=== PATIENT | male | born 1930 | race African-American/Black ===

== ENCOUNTER 2018-05-07 17:52 | Inpatient (IN) ==
--- NOTE | 2018-05-07 18:23 | PROVIDER DOCUMENTATION ---
HPI-General Adult - General Chief Complaint: Urinary Retention Stated Complaint: urinary retention Time Seen by Provider: 05/07/18 19:00 Source: patient Allergies/Adverse Reactions: Patient Allergies Allergy/AdvReac Type Severity Reaction Status Date / Time No Known Allergies Allergy Verified 05/07/18 18:04 Home Medications: Home Medication List Medication Instructions Recorded Confirmed Last Taken Type Carvedilol [Coreg] 25 mg PO DAILY 06/24/13 02/12/18 01/20/18 History Finasteride [Proscar] 1 tab PO DAILY 07/25/15 02/12/18 01/20/18 History Famotidine [Pepcid] 40 mg PO DAILY 09/04/16 02/12/18 01/20/18 History Gabapentin [Neurontin] 1 cap PO BID 09/04/16 02/12/18 01/20/18 History Hydralazine [Apresoline] 75 mg PO TID 09/04/16 02/12/18 01/20/18 History Bicalutamide [Casodex] 50 mg PO QAM 01/19/18 02/12/18 01/20/18 History Bupropion S.r. [Wellbutrin Sr] 150 mg PO BID 01/19/18 02/12/18 01/20/18 History Clonidine [Catapres] 0.1 mg PO Q6H PRN 01/19/18 02/12/18 01/20/18 History Lisinopril 10 mg PO DAILY #14 tab 01/19/18 02/12/18 01/20/18 Rx Losartan/Hydrochlorothiazide 1 each PO QAM 01/19/18 02/12/18 01/20/18 History [Losartan-Hctz 100-12.5 mg Tab] Metformin HCl [Glucophage] 1,000 mg PO QHS 01/19/18 02/12/18 01/20/18 History Sitagliptin Phosphate [Januvia] 100 mg PO QAM 01/19/18 02/12/18 01/20/18 History Tamsulosin [Flomax] 0.4 mg PO QHS 01/19/18 02/12/18 01/20/18 History Hydroxyzine [Atarax] 25 mg PO Q8H PRN PRN tablet 01/27/18 02/12/18 Unknown Rx - History of Present Illness -Gen Adult Nature of Presenting Problems: Pt coming from the [place] for urinary retention, hasn't been able to urinate today, now with lower abdominal pain, pt has known prostate enlargement, pt denies f/c , rich, cp, sob, cough, n/v/d. Pt is lying in bed in no acute distress. Location of Pain/Injury: reports: pelvis (urinary retention) Pain Radiation: reports: suprapubic Quality of Pain: reports: pressure Severity: reports: moderate Onset/Duration: reports: 24 hours ago Timing: reports: still present Context/Activities at Onset: reports: none Modifying Factors: improves with: nothing Associated Symptoms: reports: denies symptoms Similar Symptoms Previously?: No Recently seen or treated by another doctor?: No Review of Systems - Adult - REVIEW OF SYSTEMS - ADULT Constitutional: reports: no symptoms reported Eyes: reports: no symptoms reported Ears, Nose, Mouth & Throat: reports: no symptoms reported Cardiovascular: reports: no symptoms reported Respiratory: reports: no symptoms reported Gastrointestinal: reports: no symptoms reported Genitourinary: reports: see HPI Musculoskeletal: reports: no symptoms reported Integumentary: reports: no symptoms reported Neurological: reports: no symptoms reported Psychiatric: reports: no symptoms reported Endocrine: reports: no symptoms reported Hematologic/Lymphatic: reports: no symptoms reported Allergic/Immunologic: reports: no symptoms reported All Other Systems: Reviewed and Negative Past History - Adult - PAST MEDICAL HISTORY-ADULT Review of Records: reports: Nursing Assessment Review Major Childhood Illnesses: reports: denies history Cardiovascular: reports: HTN, hyperlipidemia Respiratory: reports: denies history Gastrointestinal: reports: GERD, liver disease, other (constipation) Obstetrical/Gynecological: reports: denies history Genitourinary: reports: prostate cancer (Patient refuses treatment), other (BPH) Musculoskeletal: reports: denies history Neurological: reports: dementia, headaches/migraines Psychiatric: reports: denies history Endocrine/Immune: reports: denies history Other Conditions: reports: denies history, other (anenmnia) - PRIOR SURGERIES/PROCEDURES Surgical/Procedure History: reports: hernia repair - PRIOR HOSPITALIZATIONS Prior Hospitalizations: reports: none - IMMUNIZATION STATUS Childhood Immunizations: See Nurse Assessment Flu Vaccine: See Nurse Assessment - FAMILY HISTORY Family History: reviewed, not pertinent Physical Exam-General - PHYSICAL EXAM-ADULT Initial Vital Signs Reviewed: Yes - CONSTITUTIONAL General Appearance: appears well - EYES Eyes: PERRL/EOMI - HEAD, EARS, NOSE, MOUTH & THROAT HENMT: normocephalic/atraumatic - NECK Neck: non-tender - RESPIRATORY Respiratory: chest non-tender - CARDIOVASCULAR Cardiovascular: normal peripheral pulses - GASTROINTESTINAL (ABDOMEN) Abdominal Exam: normal bowel sounds, non tender, soft - LYMPHATIC Lymphatic: no adenopathy - MUSCULOSKELETAL Back Exam: normal inspection Extremity: normal range of motion - SKIN Integumentary: normal color - NEUROLOGIC Neurologic: attendant honor bar II-XII nml as tested - PSYCHIATRIC Psych/Mental Status: normal mood/affect Progress - PLAN OF CARE/RESULTS Progress/Plan/Lab Results: Vital Signs - 8 hr 05/07/18 17:53 Temperature 98.1 F Pulse Rate 67 Respiratory Rate 18 Blood Pressure 112/60 O2 Sat by Pulse Oximetry 97 Orders Category Date Time Status Carmichael Cath Insertion ORDERED Care 05/07/18 18:11 Active BMP [BASIC METABOLIC PANEL] [CHEM] Stat Lab 05/07/18 18:15 Uncollected CBC WITH ELECTRONIC DIFF [HEME] Stat Lab 05/07/18 18:14 Uncollected UA [URINALYSIS] [URINALYSIS] Stat Lab 05/07/18 18:15 Uncollected - REASSESSMENT Reassessment #1 Time Reassessed: 19:29 Status: unchanged (ER-ER transfer for Dr Pineda to attend to him) - CONSULTS/PCP/HOSPITALIST Notification #1 *Consult/PCP/Hospitalist*: Dr pineda requested that he be transferred to ER at [facility] where he has his t Time Discussed: 19:00 (all attempts here have failed) Consult Disposition: Will see in ED #2 Consult: Pt discussed with Dr Pineda who asked that hospitalist admit patient. Time Discussed: 23:41 Reason/Comments: Pt discussed with Dr Parker who agreed to admit and asked for labs. Departure - Departure Date of Disposition Decision: 05/07/18 Time of Disposition Decision: 19:28 DIAGNOSIS: Acute urinary retention Disposition: [facility] 02 Certified Medical Emergency: Emergent Condition: Stable Referrals and Follow-Ups: UNKNOWN, [Primary Care Provider] - - Critical Care Note This patient required my direct & personal management of CC.: No Attestation - Physician/ MARYSOL Attestation The physician spent face to face time with patient:: Yes Advanced Practice Provider documentation review:: Supervising physician onsite and consulted in the evaluation and care of this patient. The physician did have a face to face encounter with the patient.
[2018-05-07] MEDS ORDERED: XYLOCAINE 2% VISCOUS MT ONE (22:05)
[2018-05-08 00:48] LABS: BASO# 0.01 X1000 (0.0-0.2); BASO% 0.1 % (0.0-0.8); HEMATOCRIT 41.6 % (42.0-52.0); HEMOGLOBIN 12.8 g/dL (14.0-18.0); IMM GRAN# 0.03 X1000 (0.0-0.04); IMM GRAN% 0.3 % (0.0-0.5); LYMPH# 0.83 X1000 (1.2-3.4); LYMPH% 7.4 % (20.5-51.1); MCH 28.9 PG (27-31); MCHC 30.8 g/dL (33-37); MCV 93.9 FL (81-99); MONO# 0.94 X1000 (0.11-0.59); MONO% 8.4 % (1.7-9.3); NEUT# 9.44 X1000 (1.4-6.5); NEUT% 83.8 % (42.2-75.2); PLT 156 X1000 (130-400); RBC 4.43 XMIL (4.7-6.1); RDW 15.3 % (11.5-14.5); WBC 11.25 X1000 (4.8-10.8)
[2018-05-08 01:14] LABS: ALB/GLOB RATIO 0.9; ALBUMIN 3.7 g/dL (3.5-5.0); CREATININE 1.9 mg/dL (0.7-1.2); POTASSIUM 4.9 mmol/L (3.5-5.1); TOTAL BILIRUBIN 0.67 mg/dL (0.20-1.00); TOTAL PROTEIN 7.7 g/dL (6.3-8.3)
[2018-05-08] MEDS ORDERED: ZOSYN 3.375 GM in NS 50 ML IV ONE (02:36)
[2018-05-08] MEDS ORDERED: NS 500 ML IV ONE (02:37)
[2018-05-08] MEDS ORDERED: NUBAIN IV PRN (03:09)
[2018-05-08] MEDS ORDERED: CATAPRES PO PRN (03:09)
[2018-05-08] MEDS ORDERED: ZOFRAN IV PRN (03:09)
[2018-05-08] MEDS ORDERED: ATARAX PO PRN (03:09)
[2018-05-08] MEDS: NS 1,000 ML IV SCH ×2 (03:25→11:16)
[2018-05-08] MEDS: HEPARIN SUBQ SCH ×2 (03:34→15:56)
--- NOTE | 2018-05-08 05:41 | HISTORY AND PHYSICAL ---
PRIMARY CARE PHYSICIAN: Unknown. Patient of [facility] facility. HISTORY OF PRESENT ILLNESS: Mr. Eddie Moreira is an 88-year-old man who is an extremely poor historian. He tells me that he [facility] to his doctor's office because he says he has been having some abdominal pain and some nausea. From there he was sent to [facility], and when they evaluated him they felt he had acute urinary retention and called Dr. Pineda who wanted the patient transferred to [facility]. Somehow the patient ended up in [facility] ER and when they heard the report from [place] that he may have urinary retention they tried to put in a catheter without any success, despite consulting Dr. Pineda who had given them some advice on how to do this. They then called Dr. Pineda with the assumption of thinking that he would come down and see the patient, but he said they were mistaken and wanted the patient admitted to the hospitalist service. When I saw the patient, I asked him about his bladder function. He said he does not have any issues with his bladder, but his problem is that he has lower abdominal pain and he thinks it may be related to a preexisting inguinal hernia. He denied any fever or chills, but said he is just queasy and sick and has been spitting up a lot of saliva. He denies any abdominal distention otherwise. As I stated earlier, he is a very poor historian, and it was very hard to get information out of him. He says the pain started yesterday and has been constant and he believes that is the reason why he was sent to see the doctor in the office. He denies any bleeding per rectum. He denies any cardiorespiratory complaints. REVIEW OF SYSTEMS: Very limited due to patient's difficulty understanding questions and giving any meaningful answers. ALLERGIES: No known allergies. HOME MEDICATIONS: 1. Clonidine 0.1 mg q.6 for systolic blood pressure greater than 170. 2. Metformin 1000 mg daily. 3. Flomax 0.4 mg at bedtime. 4. Casodex 60 mg q.a.m. 5. Wellbutrin 150 mg b.i.d. 6. Coreg 25 mg daily. 7. Pepcid 40 mg daily. 8. Proscar 1 tablet daily. 9. Gabapentin 100 mg b.i.d. 10.Apresoline 75 mg t.i.d. 11.Hyzaar 100/12.5 mg daily. 12.Januvia 100 mg q.a.m. 13.Atarax 75 mg q.8. 14.Lisinopril 10 mg daily. PAST MEDICAL HISTORY: History of prostate cancer, hypertension, type 2 diabetes , BPH, CKD. 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 FAMILY HISTORY: Unable to get. SOCIAL HISTORY: intermediate resident. Not actively smoking or drinking. PAST SURGICAL HISTORY: Has had orchiectomy and cholecystectomy per old records. LAB WORK: White count 11,000, hemoglobin 12, hematocrit 42, platelets 156,000, neutrophils 83%. BUN 29, creatinine 1.9 (baseline is usually 2), glucose 179. Urinalysis pending. CT scan official report is pending, but on what I can see, i see the patient has a lot of stool in the bowel, a large amount of gastric contents and left inguinal hernia. It is difficult to say if there is any obstruction. EXAMINATION: GENERAL: Elderly overweight man who is alert and oriented to person and place, not to time. VITAL SIGNS: Blood pressure 112/60, heart rate 67, respirations 18, temperature 98.1, 97% on room air. HEENT: Head: Normocephalic and atraumatic. Eyes: PERRL. EOMI. He is anicteric and not pale. ENT: Grossly normal. NECK: Supple. No JVD, carotid bruits or thyromegaly. CHEST: Clear when auscultated with good entry in both nicholson. CARDIOVASCULAR: First and second sounds heard. No gallops, murmurs or rubs. Rhythm is regular. ABDOMEN: Protuberant, soft. There is no tenderness except in the left lower quadrant area and left inguinal area. There is an obvious inguinal hernia which is not reducible. It does not descend into the scrotal sac. The testes are small in size, separate from the anoderm and I can get above the testes. The patient has a diminutive penis and it is uncircumcised. No rebound or guarding, but he is extremely tender. Not warm to touch. Bowel sounds are hyperactive. RECTAL: Examination deferred at this time. EXTREMITIES: The patient has no edema. Pulses distally are slightly diminished compared to the distal pulses of the upper extremities. No chronic peripheral cyanosis. NEUROLOGIC: No focal deficits noted. No asterixis. SKIN: Dry, scaly. No overt breakdown. MUSCULOSKELETAL: Grossly normal. ASSESSMENT: 1. Left lower quadrant pain possibly related to left inguinal hernia incarceration. 2. Chronic kidney disease. 3. Type 2 diabetes. 4. Hypertension. 5. Benign prostatic hypertrophy/prior carcinoma of prostate. 6. Anemia of chronic inflammation. PLAN: The patient symptoms are evaluated and do not seem to be consistent with acute bladder retention in his patient, however, will still get the patient to see Dr. Pineda. I think his primary problem is related to inguinal hernia and official CT scan report is pending. The patient is having a lot of diarrhea, has had several non bloody stools which makes it less likely that this patient has an obstructing hernia, but it may be an incarcerating hernia. No fever or chills to suggest that there is infection. I will hold off giving antibiotics for now. Hydration will be administered. Pain medications and antiemetics will be administered. Will recommend General Surgery be consulted in conjunction with a urologist. Will hold most of his antihypertensives as his blood pressure is on the low side, especially MATILDE inhibitor and ARB, which the patient was taking both for reason unknown. Depending on the official CT scan report, the patient will need nasogastric tube if it is shown that he is truly obstructed, although I sincerely doubt this. Repeat labs in the a.m. If the patient's white count escalates will consider initiating antibiotics. Urinalysis is also pending once the patient is able to produce urine after IV fluid resuscitation, and will need to be sent off. cc: Jaquelin Parker MD MTDD
[2018-05-08] MEDS: HUMALOG SUBQ SCH ×4 (06:24→21:39)
--- NOTE | 2018-05-08 07:38 | Diag Imaging Result Doc PS360 ---
EXAM: CT ABDOMEN/PELVIS W/O CONTRAST 05/08/2018 HISTORY: SBO TECHNIQUE: This exam was performed using automated exposure control, adjustment of mA or kV according to patient size, and/or use of iterative reconstruction technique. COMMENT: The current examination is compared with 02/12/2018. There is linear opacity in the left lower lobe probably representing atelectasis, otherwise there is no evidence of acute disease in the visualized portion of the chest. There is bilateral gynecomastia. There is a small hiatal hernia. There has been cholecystectomy. There is some degree of adrenal hyperplasia particularly on the left which has not changed since the previous examination. There is no evidence of hydronephrosis masses or stones in the kidneys as much as can be determined on the noncontrast study. There is stool in the colon. The appendix is not distended. The small bowel is similar in appearance to the previous examination. There is no evidence of free air or obstruction. There is a fairly large left inguinal hernia which contains a portion of the colon. This also contains some free fluid and there is thickening and apparent inflammation in the distal descending colon and the intra hernia portion of the colon. The possibility of colitis or even neoplasm cannot be excluded. There is gas and stool in the distal sigmoid and rectum. The inflammatory findings in the distal colon and in the colon within the hernia sac were not present at the time the previous study. The urinary bladder is not distended. There is no evidence of abdominal aortic aneurysm. There are number of bone islands in the pelvis as well as a sclerotic lesion on the iliac side of both sacroiliac joints more so on the right left. This has not changed significantly since the previous study. There are marked spondylotic changes present in the lumbar spine with apparent spinal stenosis at L4-5 and L3-4. There is dense sclerosis in the right pedicle of L2 with a central posterior sclerotic lesion in the body. This was also present at the time the previous study. There is bilateral iliac adenopathy particularly on the right side where there is a node or mass of nodes measuring over 3.3 cm in diameter. This is actually decreased since the previous study at which time it measured over 3.8 cm in AP dimension. Presumably these findings are related to the patient's known prostate carcinoma. IMPRESSION: 1. Left inguinal hernia containing portions of the sigmoid colon. Thickening of the mucosa and paracolonic inflammatory changes. The possibility of colitis is suggested. 2. Sclerotic osseous metastatic disease, stable since 02/12/2018. 3. Pelvic adenopathy. This is improved on the right since the previous examination. Electronically signed by Donovan Savage 05/08/2018 7:35 AM
[2018-05-08] MEDS: CASODEX PO SCH (10:41)
[2018-05-08] MEDS: PEPCID PO SCH (10:42)
[2018-05-08] MEDS: PROSCAR PO SCH (10:42)
--- NOTE | 2018-05-08 17:30 | GENERAL SURGERY CONSULTATION ---
DATE: 05/08/2018 CHIEF COMPLAINT: Incarcerated left inguinal hernia. HISTORY OF PRESENT ILLNESS: Mr. Moreira is admitted from [facility] with some abdominal discomfort and some possible urinary retention. He is discovered to have a large left inguinal hernia that is not reducible. OTHER MEDICAL PROBLEMS: His other medical problems include hypertension, lower urinary tract obstruction. He has type 2 diabetes, history of prostate cancer, some chronic kidney disease, BPH. FAMILY HISTORY: Unknown. SOCIAL HISTORY: He is a detention resident. He says he has a daughter and a sister, but that is his only family. PREVIOUS SURGERY: Includes a cholecystectomy and an orchidectomy. REVIEW OF SYSTEMS: Really difficult to obtain besides what is noted above. PHYSICAL EXAMINATION: Vital Signs: On physical exam, he is afebrile, heart rate 84, respiratory rate 16, blood pressure 178/94. Neck: No cervical adenopathy. Lungs: Bilateral breath sounds are present. Heart: Regular rate and rhythm. Abdomen: Soft. He has a large left inguinal hernia into his scrotum that is nonreducible. Extremities: No peripheral edema. Neurologic: He is awake and alert. DIAGNOSTIC DATA: White count is 11,200, hemoglobin 12.8, hematocrit 41. BUN 24, creatinine 1.9. ASSESSMENT: Incarcerated left inguinal hernia. PLAN: The plan is repair. I have discussed it with him. He understands and agrees to proceed. cc: MD Jeff Barbosa MD
--- NOTE | 2018-05-08 18:06 | PROGRESS NOTE ---
DATE: 05/08/2018 SUBJECTIVE: Mr. Moreira is very vague and poor historian admitted with urinary hesitancy, pain in the lower abdomen. No high-grade fever or chills. Known case of diabetes and hypertension. Prostate cancer. The patient did have diarrhea. Surgical consult noted. OBJECTIVE: Vital Signs: The patient's vital signs are reviewed. Neck: Supple. No JVD. Lungs: Bibasilar crepitation. Heart: S1 and S2 heard. Abdomen: Soft, globular. Tenderness left groin and lower quadrant. Extremities: No cyanosis, clubbing. No acute DVT. CONVERTIBLE TOP INSTALLER: Alert, awake, able to move all 4 limbs. Uncooperative for detailed neurologic examination. CONSIDERATION: Pain in the left lower quadrant. History suggestive of urinary retention. Patient does have CT scan of the abdomen and pelvis done, which did reveal left inguinal hernia containing portion of the sigmoid colon. Thickening of mucosa and paracolonic inflammatory changes. Possibility of colitis is suggested. Osseous metastatic disease from possible prostate cancer. Pelvic adenopathy. LABORATORY DATA: Done today, hemoglobin 12.8, hematocrit 41.6, platelet count 156,000. WBC count 11.25. ASSESSMENT AND PLAN: The patient's other problems include hypertension, diabetes chronic kidney disease. The patient does have dementia. PLAN: Surgical and Urology helping manage this patient. We will continue rest of the treatment. Close observation. cc: Jeff Sanchez MD
--- NOTE | 2018-05-08 19:03 | CONSULTATION ---
DATE OF CONSULTATION: 05/08/2018 SUBJECTIVE: Mr. Eddie Moreira is an 88-year-old, overweight black male who presented to [facility] with lower abdominal discomfort and possible urinary retention. He was transferred to [facility] for further care and urology consult. He has been middle admitted to the hospitalist. He has a large left inguinal hernia and we were asked to evaluate him. He has a history of a right inguinal hernia repair. He has had this known left inguinal hernia since at least 2016. The CT scan performed as part of his evaluation at [facility] suggested some colitis involving the descending and sigmoid colon even some of the colon within the scrotum. He does have some diarrhea and lower abdominal pain. He is a poor historian. PAST MEDICAL HISTORY: Right inguinal hernia repair. Hypertension. Gastroesophageal reflux disease. Prostate cancer. Orchiectomy. He has a history of headaches and migraines. He has type 2 diabetes. History of prostate cancer, hypertension. PAST SURGICAL HISTORY: Orchiectomy and cholecystectomy. HOME MEDICATIONS: Clonidine, metformin, Flomax, Casodex, Wellbutrin, Coreg, Pepcid, Proscar, gabapentin, Apresoline, Hyzaar, Januvia cataracts and lisinopril. ALLERGIES: No known drug allergies. SOCIAL HISTORY: He is a half-way. PHYSICAL EXAMINATION: On exam, Mr. narendra Waldron's overweight older black male who is a difficult historian but he is awake and he is in no acute distress. He is wearing a pad to control urinary incontinence. He has no jaundice. No oral lesions. No cervical or supraclavicular lymphadenopathy. His heart has regular rate. His lungs were clear. His abdomen was protuberant but there is no palpable mass. He does have a large left inguinal hernia. It is incarcerated but there is no evidence on exam of strangulation. This inguinal hernia is not hard to palpate. It appears to be soft but it is so large it extends into his scrotum and is difficult to reduce. He has palpable femoral pulses. He does have peripheral edema. He has no focal deficits. DIAGNOSTIC DATA: CT scan documents this left inguinal hernia that has some of the sigmoid colon within it and extends into the scrotum. There does not appear to be a bowel obstruction. He is having some diarrhea and on CT scan there was evidence of colitis. Dr. Minh Pineda has seen him in consult and post void residuals are being checked. He does not have a Carmichael catheter tube at this time but he appears to be incontinent to urine. His BUN and creatinine are 24 and 1.9. Liver function tests are within normal limits. His white blood cell count slightly elevated at 11.2, hematocrit 41%. IMPRESSION: A large left inguinal hernia which is incarcerated but does not appear to be strangulated on exam. The patient does appear to have bowel activity and even loose stools. CT scan suggests colitis in the left descending colon and sigmoid colon with surrounding inflammation of his colon and thickened colon wall. PLAN: I would treat his colitis medically and not be quick to fix this long-standing left inguinal hernia at this time as long as there is no obstructive symptoms or symptoms of strangulation. cc: MD Jeff Cullen MD
[2018-05-08] MEDS: FLOMAX PO SCH (20:36)
[2018-05-08] MEDS: ZOSYN 2.25 GM in NS 50 ML IV SCH (20:36)
--- NOTE | 2018-05-08 20:49 | CONSULTATION ---
DATE OF CONSULTATION: 05/08/2018 HISTORY OF PRESENT ILLNESS: This 88-year-old male has a history of stage T4 prostate cancer. His PSA in June 2016 was 153. 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 He underwent bilateral orchiectomy in August 2016. His PSA dropped to less than 1. He has occasional voiding problems, but states he told the group home people he was having lower abdominal pain. He was brought to the emergency room and the personnel were told that he had urinary retention. The patient states he had several different people try to put a catheter in without success. He states he told them he was voiding without difficulty. An apparent postvoid residual was 20 mL. The patient had a CT scan that revealed a large left inguinal hernia with bowel into the scrotum. Again, he has had a bilateral orchiectomy and the scrotum should not have anything in the scrotum. The patient states he does feel better. He states he voids without difficulty. PAST MEDICAL HISTORY: Hypertension, diabetes, chronic kidney disease and gastroesophageal reflux disease. CURRENT MEDICATIONS: Documented on his chart and include Casodex 50 mg a day. PAST SURGICAL HISTORY: Bilateral orchiectomy, cholecystectomy. SOCIAL HISTORY: He lives in a group home. There is no tobacco or alcohol use. ALLERGIES: No known drug allergies. REVIEW OF SYSTEMS: He states he has not been feeling well for the last several weeks and does have diarrhea. He denies any chest pains. PHYSICAL EXAMINATION: General: A mildly obese, age apparent, normally developed, black male, oriented in all ways and cooperative. HEENT: Normal for age. Lungs: Clear. Cardiovascular: Regular rate and rhythm. Abdomen: Obese, soft, tender in the left lower quadrant and suprapubic area. : There is a mass in the scrotum that is very tender with palpation. 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 Meatus is normal. Rectal: Deferred. Extremities: No clubbing, cyanosis, or edema. Neurologic: No focal deficits. LABORATORY EVALUATION: Has a serum sodium 139, potassium 4.9, chloride 102, bicarb 23, BUN 24, creatinine 1.9. CBC has a white count of 11.25, a hemoglobin of 12.8, hematocrit of 41.6, and platelets are 156,000. IMPRESSION: 1. T4 prostate cancer. 2. Incarcerated left inguinal hernia. 3. Diarrhea. RECOMMEND: 1. Check PSA. 2. Postvoid residual checks. 3. Continue Casodex. 4. If PSA is increasing, will ask oncology to evaluate for further treatment with possibly Xtandi. Thank you for this consultation. cc: MD Jeff Victoria MD
[2018-05-08] MEDS: PROTONIX IV SCH (21:40)
[2018-05-09] MEDS: ZOSYN 2.25 GM in NS 50 ML IV SCH ×4 (03:27→21:45)
[2018-05-09] MEDS: HEPARIN SUBQ SCH ×2 (03:27→16:11)
[2018-05-09] MEDS: HUMALOG SUBQ SCH ×4 (06:32→21:27)
[2018-05-09] MEDS: TYLENOL PO PRN (06:33)
[2018-05-09 06:52] LABS: BASO# 0.03 X1000 (0.0-0.2); BASO% 0.4 % (0.0-0.8); EOS# 0.03 X1000 (0.0-0.7); EOS% 0.4 % (0.0-10.0); HEMATOCRIT 38.6 % (42.0-52.0); HEMOGLOBIN 12.2 g/dL (14.0-18.0); LYMPH# 1.21 X1000 (1.2-3.4); LYMPH% 16.7 % (20.5-51.1); MCH 30.2 PG (27-31); MCHC 31.6 g/dL (33-37); MCV 95.5 FL (81-99); MONO# 1.11 X1000 (0.11-0.59); MONO% 15.3 % (1.7-9.3); MPV 12.5 FL (7.4-10.4); NEUT# 4.88 X1000 (1.4-6.5); NEUT% 67.2 % (42.2-75.2); PLT 127 X1000 (130-400); RBC 4.04 XMIL (4.7-6.1); RDW 15.8 % (11.5-14.5); WBC 7.26 X1000 (4.8-10.8)
[2018-05-09 07:00] LABS: AGAP 10; BUN 21 mg/dL (8-22); CALCIUM 8.4 mg/dL (8.8-10.2); CHLORIDE 107 mmol/L (98-107); COSMO 287; CREATININE 1.3 mg/dL (0.7-1.2); ESTIMATED GFR > 60; GLUCOSE 142 mg/dL (70-104); POTASSIUM 4.2 mmol/L (3.5-5.1); SODIUM 141 mmol/L (136-145); TCO2 24 mmol/L (25-35)
[2018-05-09] MEDS ORDERED: DIPRIVAN 1% ONE ×2 (07:28→11:32)
[2018-05-09] MEDS ORDERED: FENTANYL ONE (07:30)
[2018-05-09] MEDS ORDERED: ZEMURON ONE (07:31)
[2018-05-09] MEDS ORDERED: QUELICIN (DOSE) ONE (07:31)
[2018-05-09] MEDS: CASODEX PO SCH (08:13)
[2018-05-09] MEDS: PEPCID PO SCH (08:13)
[2018-05-09] MEDS: PROSCAR PO SCH (08:14)
[2018-05-09] MEDS ORDERED: VANCOMYCIN 1 GM/NS 1 GM/250 ML IVPB IV ONE (08:24)
[2018-05-09] MEDS ORDERED: SENSORCAINE-MPF 0.5%/EPI 1:200,000 ONE (08:39)
[2018-05-09] MEDS ORDERED: NEO-SYNEPHRINE ONE ×2 (08:40→11:34)
[2018-05-09] MEDS ORDERED: SODIUM CHLORIDE 0.9% 10 ML ONE ×2 (08:43→11:34)
[2018-05-09] MEDS ORDERED: ROBINUL ONE (09:17)
[2018-05-09] MEDS ORDERED: NEOSTIGMINE ONE (09:17)
[2018-05-09] MEDS: DILAUDID ONE ×4 (10:18→10:31)
[2018-05-09] MEDS ORDERED: XYLOCAINE 2% JELLY UROJECT UR ONE (10:45)
[2018-05-09] MEDS ORDERED: XYLOCAINE-MPF 2% ONE (11:32)
[2018-05-09] MEDS ORDERED: NARCAN ONE (13:48)
--- NOTE | 2018-05-09 14:44 | PROGRESS NOTE ---
DATE: 05/09/2018 SUBJECTIVE: Mr. Moreira has an incarcerated left inguinal hernia. He has metastatic prostate cancer, dementia. OBJECTIVE: His vital signs have been stable. He has gone for surgery this morning for the hernia by Dr. Villegas. -7 cc: MD Jeff Cordon MD
--- NOTE | 2018-05-09 16:00 | OPERATIVE NOTE ---
PROCEDURE DATE: 05/09/2018 PROCEDURE: Jan ligament repair, incarcerated left inguinal hernia. SURGEON: Dr. Villegas. LINUX SYSTEMS ADMINISTRATOR: Chio. PREOPERATIVE DIAGNOSIS: Incarcerated left inguinal hernia. POSTOP DIAGNOSIS: Incarcerated left inguinal hernia. FINDINGS: The hernia sac extended into the scrotum. There was an incarcerated colon. The colon was somewhat swollen. There was cloudy peritoneal fluid within the hernia sac. The patient had a previous orchiectomy. DESCRIPTION OF PROCEDURE: Satisfactory general endotracheal anesthesia was achieved. The abdomen, scrotum and penis were prepped and draped in a sterile fashion. An [place] drape was used. We anesthetized the skin with 0.5 Marcaine with epinephrine in a transverse fashion just below the lower abdominal crease. We incised the skin and carried our incision through the subcutaneous fat through Ramez fascia to the external oblique aponeurosis. We incised the external oblique aponeurosis. We exposed the inguinal canal contents. We then dissected distally into the scrotum to free up the incarcerated colon and hernia sac. We actually entered the hernia sac and exposed the colon. There was cloudy peritoneal fluid but it had no odor. The defect in the inguinal floor was identified. Actually had to incise the defect on the cephalad aspect to increased the size of the hole to allow reduction of the swollen colon. We were able to finally reduce the colon back into the abdominal cavity and we held it there with a lap. We then excised the hernia sac that was in the scrotum and sent for specimen. We did identify what previously were the cord structures and we surrounded them with a [place] drain. The patient had a previous orchiectomy however. Since he had a previous orchiectomy and had no use for his cord structures, I did clamp them off proximally and excised the cord structures and suture ligated with a 2-0 silk suture ligature. We then exposed Jan ligament on the medial aspect. I made a relaxing incision over the internal oblique muscle to allow Jan ligament repair. I then used 0 Prolene stitches from the shelving edge superiorly down to Jan ligament until we made the transition stitch to the inguinal ligament. I continued laterally sewing the shelving edge to the inguinal ligament until the defect was completely closed. We did remove the lap prior to completing that. This satisfactorily closed the defect. We did not use mesh because of the risk of infection. We irrigated out the wound copiously. I injected 0.5 Marcaine along the course of the closure as well as the subcutaneous tissue again. We closed the subcutaneous tissue with #3-0 Polysorb and closed the skin with a 4-0 Polysorb subcuticular stitch. Telfa and a sterile OpSite dressing was applied. He tolerated the procedure satisfactory. Was sent to the recovery room in satisfactory condition. cc: MD Jeff Barbosa MD
--- NOTE | 2018-05-09 19:44 | OPERATIVE NOTE ---
PROCEDURE DATE: 05/09/2018 SURGEON: Tung Pineda MD. 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 POSTOPERATIVE DIAGNOSIS: Stage T4 prostate cancer with a proximal bulbar urethral stricture. PROCEDURE PERFORMED: 1. Direct visual internal urethrotomy. 2. Cystoscopic exam. 3. Difficult Carmichael catheterization. ANESTHESIA: General via laryngeal mask. FINDINGS: Cystoscopic exam: Urethra with an approximate 3-Salvadorean proximal bulbar stricture. After direct visual internal urethrotomy, greater than 24-Salvadorean. Prostate-coapting lateral lobes, elevated bladder neck, length approximately 4 cm. Bladder-with the trigone being pushed up by a mass outside the bladder, the ureteral orifices were displaced laterally. Grade 1 trabeculations. No diverticula. No papillary lesions. Rectal exam reveals a very firm mass at the prostatic fossa. There was bloody stool noted. This was probably from his incarcerated hernia repair that was done 1 hour earlier. INDICATION FOR PROCEDURE: This 88-year-old male has a history of stage T4 prostate cancer. He is status post bilateral orchiectomy. He did well until he started having significant abdominal pain and diarrhea. Evaluation revealed an incarcerated left inguinal hernia. Attempts were made to place a Carmichael catheter without success. Filiforms and followers were used but the stricture could not be dilated. DESCRIPTION OF PROCEDURE: After discussing this with his family, he was taken back to the main OR cystoscopy room and placed in the supine position. General anesthesia via laryngeal mask was achieved. He was then placed in a low lithotomy position and prepped and draped in the usual sterile fashion for cystoscopic exam. The direct visual urethrotome was passed through the patient's urethra and into the proximal bulb where a very tight stricture was noted. A 0.035 ZIPwire was used to probe this area and finally was able to be pushed through a very small area and up into the bladder. The wire was verified in position by fluoro. The stricture was incised at the 12 o'clock position. The urethrotome was able to be passed up into the bladder. The urethrotome was removed. A 21-Salvadorean sheath cystoscope was passed beside the indwelling ZIPwire through the prostate and in bladder with findings noted above. The bladder was irrigated and then left distended. The cystoscope was removed. A 20 silicone Carmichael was made into a Councill tip catheter by cutting a plug out of the end of the silicone Carmichael with a catheter cutter. The Carmichael catheter was then advanced over the wire and after some manipulation, able to be pushed up into the bladder. The wire was removed. The efflux was clear. 10 mL of sterile water were placed in the Carmichael's balloon. A rectal exam was performed that again revealed bloody stool on the examining finger. Estimated blood loss of this case was 1-2 mL. His Carmichael was placed to gravity drain that was clear. He was taken to recovery room in good condition. cc: MD Jeff Victoria MD
[2018-05-09] MEDS: PROTONIX IV SCH (21:46)
[2018-05-09] MEDS: PERIDEX MT SCH (21:47)
[2018-05-09] MEDS: FLOMAX PO SCH (21:47)
[2018-05-10] MEDS: HEPARIN SUBQ SCH ×3 (03:20→16:26)
[2018-05-10] MEDS: ZOSYN 2.25 GM in NS 50 ML IV SCH ×4 (03:20→23:04)
[2018-05-10] MEDS: HUMALOG SUBQ SCH ×4 (06:47→23:05)
[2018-05-10 07:24] LABS: BASO# 0.01 X1000 (0.0-0.2); BASO% 0.1 % (0.0-0.8); EOS# 0.02 X1000 (0.0-0.7); EOS% 0.2 % (0.0-10.0); HEMATOCRIT 37.2 % (42.0-52.0); HEMOGLOBIN 11.2 g/dL (14.0-18.0); IMM GRAN# 0.03 X1000 (0.0-0.04); IMM GRAN% 0.4 % (0.0-0.5); LYMPH# 1.29 X1000 (1.2-3.4); LYMPH% 15.6 % (20.5-51.1); MCH 29.1 PG (27-31); MCHC 30.1 g/dL (33-37); MCV 96.6 FL (81-99); MONO# 1.68 X1000 (0.11-0.59); MONO% 20.3 % (1.7-9.3); MPV 12.7 FL (7.4-10.4); NEUT# 5.24 X1000 (1.4-6.5); NEUT% 63.4 % (42.2-75.2); PLT 111 X1000 (130-400); RBC 3.85 XMIL (4.7-6.1); RDW 15.6 % (11.5-14.5); WBC 8.27 X1000 (4.8-10.8)
[2018-05-10 07:27] LABS: CALCIUM 8.6 mg/dL (8.8-10.2); CREATININE 1.5 mg/dL (0.7-1.2); POTASSIUM 4.4 mmol/L (3.5-5.1)
[2018-05-10] MEDS: PERIDEX MT SCH (09:13)
[2018-05-10] MEDS: PROSCAR PO SCH (09:13)
[2018-05-10] MEDS: PEPCID PO SCH (09:13)
[2018-05-10] MEDS: CASODEX PO SCH (09:13)
--- NOTE | 2018-05-10 11:58 | PROGRESS NOTE ---
DATE: 05/10/2018 SUBJECTIVE: Mr. Moreira has a Carmichael catheter put by Dr. Cervantes and he wants to keep it at least for 7 days. His PSA has been elevated to [address] Arguelles is his oncologist. He had surgery for incarcerated left inguinal hernia by Dr. Villegas yesterday. He is doing better. OBJECTIVE: Lungs: Clear. Cardiac: Heart sounds are normal. Abdomen: Soft, nontender. PLAN: We will continue the current management. He is on clear liquids at the present time. -0 cc: MD Jeff Cordon MD
--- NOTE | 2018-05-10 12:17 | PROGRESS NOTE ---
DATE: 05/10/2018 Mr. Moreira's CBC and electrolytes are normal. BUN 24, creatinine 1.5. Overall condition is stable. cc: MD Jeff Cordon MD
[2018-05-10] MEDS: NORCO-10 PO PRN (14:17)
--- NOTE | 2018-05-10 14:38 | GENERAL SURGERY PROGRESS NOTE ---
DATE: 05/10/2018 It is 11 o'clock in the morning. Mr. Moreira is afebrile. He is awake and alert. His heart rate is 101, blood pressure 177/83. He has some swelling in the left groin as expected but the wound looks okay. He has a Carmichael catheter in place. White count is 8300, hemoglobin 11.2, BUN 24, creatinine 1.5. The plan will be to advance him to full liquids today. cc: MD Jeff Barbosa MD
[2018-05-10] MEDS: PROTONIX IV SCH (23:04)
[2018-05-10] MEDS: FLOMAX PO SCH (23:04)
[2018-05-10] MEDS: TYLENOL PO PRN (23:19)
[2018-05-11] MEDS: ZOSYN 2.25 GM in NS 50 ML IV SCH ×4 (02:18→21:37)
[2018-05-11] MEDS: HEPARIN SUBQ SCH ×2 (02:18→19:32)
[2018-05-11] MEDS: HUMALOG SUBQ SCH ×4 (06:31→21:22)
--- NOTE | 2018-05-11 08:12 | PROGRESS NOTE ---
DATE: 05/11/2018 SUBJECTIVE: Mr. Moreira is doing fair, a vague and poor historian. He denied any fever or chills. No nausea or vomiting. Oral intake is fair. He denied any unusual cough or expectoration. The patient is status post left inguinal hernia surgery, and the patient also had a cystoscopic exam and internal urethrostomy done by Dr. Pineda. OBJECTIVE: Vital Signs: His vital signs are noted. Skin: Senile turgor. Neck: Supple. No JVD. Lungs: Bibasilar crepitations. Heart: S1 and S2 heard. Abdomen: Soft, mild distention. Bowel sounds hypoactive. Central Nervous System: Alert, awake, able to move all 4 limbs. LABORATORY DATA: The lab data done yesterday reviewed. ASSESSMENT AND PLAN: The patient is doing fair. I am going to continue current treatment, close observation. The patient is on a full liquid diet. When okay with the surgeon, we will plan on discharging the patient home. His problems include hypertension, prostate cancer, osteoarthritis, obstructive uropathy, and left inguinal hernia, status post surgery. cc: Jeff Sanchez MD
[2018-05-11] MEDS: CASODEX PO SCH (09:50)
[2018-05-11] MEDS: PEPCID PO SCH (09:50)
[2018-05-11] MEDS: PROSCAR PO SCH (09:51)
[2018-05-11] MEDS: PERIDEX MT SCH ×2 (09:51→21:38)
--- NOTE | 2018-05-11 11:46 | GENERAL SURGERY PROGRESS NOTE ---
DATE: 05/11/2018 It is 10:45 in the morning. Mr. Moreira's temp is 99.6 degrees, heart rate 99, blood pressure 134/100. He has taken liquids satisfactorily. He denies any nausea. He has had no bowel movement as of yet. The plan will be to advance him to a diabetic diet and allow him to take what he can. cc: MD Jeff Barbosa MD
[2018-05-11] MEDS: NORCO-10 PO PRN ×2 (13:45→23:38)
[2018-05-11] MEDS: PROTONIX IV SCH (21:37)
[2018-05-11] MEDS: FLOMAX PO SCH (21:38)
[2018-05-12] MEDS: ZOSYN 2.25 GM in NS 50 ML IV SCH ×4 (02:09→21:44)
[2018-05-12] MEDS: HEPARIN SUBQ SCH ×2 (03:22→18:13)
[2018-05-12] MEDS: HUMALOG SUBQ SCH ×4 (06:36→21:46)
[2018-05-12 06:49] LABS: BASO# 0.01 X1000 (0.0-0.2); BASO% 0.1 % (0.0-0.8); EOS# 0.05 X1000 (0.0-0.7); EOS% 0.7 % (0.0-10.0); HEMATOCRIT 32.1 % (42.0-52.0); IMM GRAN# 0.05 X1000 (0.0-0.04); IMM GRAN% 0.7 % (0.0-0.5); LYMPH# 1.13 X1000 (1.2-3.4); LYMPH% 15.9 % (20.5-51.1); MCH 29.3 PG (27-31); MCHC 31.2 g/dL (33-37); MCV 94.1 FL (81-99); MONO# 1.35 X1000 (0.11-0.59); MPV 12.5 FL (7.4-10.4); NEUT# 4.53 X1000 (1.4-6.5); NEUT% 63.6 % (42.2-75.2); PLT 138 X1000 (130-400); RBC 3.41 XMIL (4.7-6.1); RDW 14.4 % (11.5-14.5); WBC 7.12 X1000 (4.8-10.8)
[2018-05-12 07:15] LABS: ALB/GLOB RATIO 0.7; ALBUMIN 2.9 g/dL (3.5-5.0); CALCIUM 8.7 mg/dL (8.8-10.2); CREATININE 1.4 mg/dL (0.7-1.2); MAGNESIUM 2.2 mg/dL (1.5-2.7); POTASSIUM 3.5 mmol/L (3.5-5.1); TOTAL BILIRUBIN 0.74 mg/dL (0.20-1.00)
--- NOTE | 2018-05-12 07:41 | PROGRESS NOTE ---
DATE: 05/12/2018 SUBJECTIVE: Mr. Moreira is doing fair. The patient does have abdominal distention, some stool. No nausea or vomiting. Not able to give good history. He denied any chest pain. No high-grade fever or chills. The patient is status post left inguinal hernia surgery for incarcerated hernia. Known case of metastatic prostate cancer, hypertension, diabetes. His vital signs noted. Neck is supple. No JVD. Lungs: Bibasilar crepitations. Heart: S1 and S2 heard. Abdomen: Distention present. Bowel sounds hypoactive. No point tenderness. No acute DVT. MIXING OPERATOR: Alert, awake. Answering questions fair. LABORATORY DATA: Blood work done today: WBC count 7.12, hemoglobin 10, hematocrit 32.1, platelet count 138,000. Potassium was 3.5. BUN 23, creatinine 1.4. CONSIDERATION: The patient's problems include 1. Hypertension. 2. Vyp-wtrseav-fsixipaay diabetes. 3. Left inguinal hernia, status post surgery. Clinically, the patient seems to be developing ileus, metastatic prostate cancer, anemia, dementia. I am going to get abdominal x-ray. We will hold on diet at this time. Continue rest of the treatment. Close observation. PLAN: Overall plan discussed with the patient. Surgeon following patient with us. cc: Jeff Sanchez MD
--- NOTE | 2018-05-12 10:55 | Diag Imaging Result Doc PS360 ---
EXAM: ABDOMEN FLAT/UPRIGHT INDICATION: pain TECHNIQUE: 3 views COMPARISON: 08/07/2015 FINDINGS: There is significant gaseous distention of bowel throughout the abdomen. Most of this appears to be colonic distention. However, there may be a component of small bowel distention as well. It is nonspecific. It would be difficult to completely exclude obstruction. No definite large volume free abdominal gas is appreciated. There is atelectasis at the lung bases. IMPRESSION: Significant nonspecific gaseous distention of bowel throughout the abdomen that appears to be predominantly colonic. Electronically signed by Hudson Shelley 05/12/2018 10:52 AM
[2018-05-12] MEDS: POTASSIUM CHLORIDE 10 MEQ in NS 1,000 ML IV SCH (12:12)
[2018-05-12] MEDS: PROSCAR PO SCH (12:15)
[2018-05-12] MEDS: CASODEX PO SCH (12:16)
[2018-05-12] MEDS: FLOMAX PO SCH ×2 (12:19→21:46)
[2018-05-12] MEDS: PERIDEX MT SCH ×2 (12:19→21:47)
[2018-05-12] MEDS: PEPCID PO SCH (12:19)
[2018-05-12] MEDS: PROTONIX IV SCH (21:46)
[2018-05-13] MEDS: ZOSYN 2.25 GM in NS 50 ML IV SCH ×4 (01:51→22:12)
[2018-05-13] MEDS: HEPARIN SUBQ SCH ×3 (01:52→18:29)
[2018-05-13] MEDS: HUMALOG SUBQ SCH ×3 (06:19→20:29)
--- NOTE | 2018-05-13 07:49 | PROGRESS NOTE ---
DATE: 05/13/2018 SUBJECTIVE: Mr. Moreira is doing fair. The patient does have abdominal distention. Abdominal x- ray did reveal significant nonspecific gaseous distention of bowel throughout the abdomen predominantly colonic. No nausea or vomiting. No high-grade fever or chills. Denied any chest pain. History part is limited. OBJECTIVE: Vital Signs: Noted. Neck: Supple. No JVD. Lungs: Bibasilar crepitations. Heart: S1 and S2 heard. Abdomen: Soft, distended. Bowel sounds hypoactive. No acute DVT. FORESTRY ADVISER: Alert and awake. Able to move all 4 limbs. LABORATORY DATA: The patient's lab data done yesterday noted. I am going to recheck labs today. Continue rest of the treatment, and close observation. IMPRESSION AND PLAN: His problems includes incarcerated left inguinal hernia status post surgery, possible ileus, hypertension, IDDM and dementia. cc: Jeff Sanchez MD
[2018-05-13] MEDS: PEPCID PO SCH (08:41)
[2018-05-13] MEDS: PROSCAR PO SCH (08:41)
[2018-05-13] MEDS: CASODEX PO SCH (08:41)
[2018-05-13] MEDS: FLOMAX PO SCH ×2 (08:41→22:29)
[2018-05-13] MEDS: PERIDEX MT SCH ×2 (08:42→22:12)
[2018-05-13] MEDS ORDERED: DULCOLAX PR ONE ×2 (09:21→18:21)
--- NOTE | 2018-05-13 09:59 | GENERAL SURGERY PROGRESS NOTE ---
DATE: 05/13/2018 SUBJECTIVE: He is 4 days after his repair of incarcerated left inguinal hernia. He does have tympany to his abdomen. He does have x-ray picture consistent with ileus. His wound looks fine. I will give him a suppository to see if we can help get rid of some of his gas. cc: MD Jeff Barbosa MD
[2018-05-13 10:04] LABS: AGAP 11; ALB/GLOB RATIO 0.8; ALBUMIN 2.8 g/dL (3.5-5.0); ALKALINE PHOSPHATASE 52 U/L (32-122); BUN 25 mg/dL (8-22); CHLORIDE 102 mmol/L (98-107); COSMO 280; CREATININE 1.1 mg/dL (0.7-1.2); ESTIMATED GFR > 60; GLUCOSE 106 mg/dL (70-104); GOT 12 U/L (10-34); GPT 10 U/L (10-44); POTASSIUM 3.7 mmol/L (3.5-5.1); SODIUM 138 mmol/L (136-145); TCO2 25 mmol/L (25-35); TOTAL BILIRUBIN 0.51 mg/dL (0.20-1.00); TOTAL PROTEIN 6.4 g/dL (6.3-8.3)
[2018-05-13 11:23] LABS: BASO# 0.01 X1000 (0.0-0.2); BASO% 0.2 % (0.0-0.8); EOS# 0.18 X1000 (0.0-0.7); EOS% 3.5 % (0.0-10.0); HEMATOCRIT 29.8 % (42.0-52.0); HEMOGLOBIN 9.2 g/dL (14.0-18.0); IMM GRAN# 0.03 X1000 (0.0-0.04); IMM GRAN% 0.6 % (0.0-0.5); LYMPH# 1.04 X1000 (1.2-3.4); LYMPH% 20.2 % (20.5-51.1); MCH 29.2 PG (27-31); MCHC 30.9 g/dL (33-37); MCV 94.6 FL (81-99); MONO# 1.13 X1000 (0.11-0.59); MONO% 21.9 % (1.7-9.3); MPV 12.5 FL (7.4-10.4); NEUT# 2.76 X1000 (1.4-6.5); NEUT% 53.6 % (42.2-75.2); PLT 141 X1000 (130-400); RBC 3.15 XMIL (4.7-6.1); RDW 14.3 % (11.5-14.5); WBC 5.15 X1000 (4.8-10.8)
[2018-05-13 11:29] LABS: BANDS 2 % (0-1); EOS 2 % (1-10); LYMPHS 19 % (21-51); MONO 19 % (1-9); SEGS 58 % (42-75)
[2018-05-13] MEDS: CLINIMIX E 4.25%-5% SOLUTION 1,000 ML IV SCH ×2 (18:14→22:12)
[2018-05-13] MEDS: POTASSIUM CHLORIDE 10 MEQ in NS 1,000 ML IV SCH (18:14)
[2018-05-13] MEDS: NORCO-10 PO PRN (18:28)
[2018-05-13] MEDS: PROTONIX IV SCH (22:14)
[2018-05-14] MEDS: HEPARIN SUBQ SCH ×2 (02:51→15:18)
[2018-05-14] MEDS: ZOSYN 2.25 GM in NS 50 ML IV SCH ×4 (03:28→22:39)
[2018-05-14] MEDS: POTASSIUM CHLORIDE 10 MEQ in NS 1,000 ML IV SCH ×2 (03:39→22:39)
[2018-05-14] MEDS: CLINIMIX E 4.25%-5% SOLUTION 1,000 ML IV SCH ×2 (03:39→22:40)
[2018-05-14] MEDS: HUMALOG SUBQ SCH ×4 (06:29→22:38)
--- NOTE | 2018-05-14 07:40 | PROGRESS NOTE ---
DATE: 05/14/2018 SUBJECTIVE: Mr. Moreira is doing fair. History part was limited. According to nurses, the patient did have a large bowel movement. The patient does feel hungry. They had a hard time starting his IV. The patient was agitated. Trying to hit nurse who was starting IV. I am going to start him on a GI soft diet today. No chest pain or palpitations. OBJECTIVE: Vital Signs: His vital signs noted. Patient is afebrile. Neck: Supple. No JVD. Lungs: Bibasilar crepitation. Heart: S1 and S2 heard. Abdomen: Soft, globular. Bowel sounds present. Extremities: No cyanosis, clubbing. No acute DVT. BOND MANAGER: Alert, awake. Uncooperative for detailed exam. ASSESSMENT: The patient's problems include: 1. Paralytic ileus, seems to be improving. 2. Hypertension. 3. Diabetes mellitus. Accu-Chek results reviewed. PLAN: I am planning to advance diet. If clinical condition permits and okay with surgeon. We will plan discharging patient to rehab tomorrow. Blood work done yesterday, hemoglobin 9.2, hematocrit 29.8, platelet count 141,000. Electrolytes were fairly benign. cc: Jeff Sanchez MD
[2018-05-14] MEDS: PEPCID PO SCH (08:08)
[2018-05-14] MEDS: PROSCAR PO SCH (08:08)
[2018-05-14] MEDS: PERIDEX MT SCH ×2 (08:08→22:38)
[2018-05-14] MEDS: CASODEX PO SCH (08:08)
[2018-05-14] MEDS: FLOMAX PO SCH ×2 (08:08→23:40)
[2018-05-14] MEDS ORDERED: DULCOLAX PR ONE (09:57)
--- NOTE | 2018-05-14 10:17 | GENERAL SURGERY PROGRESS NOTE ---
DATE: 05/14/2018 Mr. Moreira continued to have a mildly distended abdomen with tympany. Bowel sounds are tinkling. He denies any bowel activity. His wound looks fine. White count is fine. His chemistry is okay. He is back on solid food. I will give him a Dulcolax suppository. I will stop his narcotics in hopes that his bowel activity will improve. He can have Ultram for pain. cc: MD Jeff Barbosa MD
[2018-05-14] MEDS: ULTRAM PO PRN (12:44)
[2018-05-14] MEDS: APRESOLINE PO SCH ×4 (15:17→17:15)
[2018-05-14] MEDS: COREG PO SCH ×3 (15:17→23:40)
[2018-05-14] MEDS: TYLENOL PO PRN (17:15)
[2018-05-14] MEDS: PROTONIX IV SCH (22:39)
[2018-05-15] MEDS: ZOSYN 2.25 GM in NS 50 ML IV SCH ×4 (03:02→23:05)
[2018-05-15] MEDS: HEPARIN SUBQ SCH ×2 (03:05→16:45)
[2018-05-15] MEDS: COREG PO SCH ×4 (04:52→23:11)
[2018-05-15] MEDS: HUMALOG SUBQ SCH ×4 (06:27→23:05)
--- NOTE | 2018-05-15 07:24 | PROGRESS NOTE ---
DATE: 05/15/2018 SUBJECTIVE: Mr. Moreira is doing fair. According to the nurse, he had a good night. He was more cooperative. Patient had watery stool. No fever or chills. History part is limited. No nausea or vomiting. Oral intake is variable to poor. No chest pain. The patient is status post surgery for incarcerated inguinal hernia. OBJECTIVE: His vital signs are noted. Blood pressure is staying high. I am going to resume his Hyzaar. Neck: Supple. No JVD. Lungs: Bilateral good air entry present. CVS: S1 and S2 heard. Abdomen: Soft, globular. Bowel sounds are present. Mild diffuse tenderness. No guarding or rigidity. Extremities: No cyanosis or clubbing. INSPECTOR PROCESS: Alert, awake, and uncooperative for detailed exam. The patient is uncooperative for history. IMPRESSION AND PLAN: I am going to check abdominal x-ray and appropriate labs. Will discuss with Dr. estrada about discharge planning. After reviewing the x-ray, we will make necessary recommendations. Other problems includes NIDDM, history of prostate cancer, osteoarthritis and dementia. cc: Jeff Sanchez MD
[2018-05-15 08:53] LABS: BASO# 0.02 X1000 (0.0-0.2); BASO% 0.3 % (0.0-0.8); EOS# 0.11 X1000 (0.0-0.7); EOS% 1.8 % (0.0-10.0); HEMATOCRIT 29.4 % (42.0-52.0); HEMOGLOBIN 8.9 g/dL (14.0-18.0); IMM GRAN# 0.07 X1000 (0.0-0.04); IMM GRAN% 1.1 % (0.0-0.5); LYMPH# 1.44 X1000 (1.2-3.4); LYMPH% 23.4 % (20.5-51.1); MCHC 30.3 g/dL (33-37); MCV 95.8 FL (81-99); MONO% 14.6 % (1.7-9.3); MPV 11.7 FL (7.4-10.4); NEUT# 3.62 X1000 (1.4-6.5); NEUT% 58.8 % (42.2-75.2); PLT 178 X1000 (130-400); RBC 3.07 XMIL (4.7-6.1); RDW 14.3 % (11.5-14.5); WBC 6.16 X1000 (4.8-10.8)
[2018-05-15 08:59] LABS: URINE SOURCE CATH
[2018-05-15] MEDS ORDERED: HYZAAR 100/12.5 MG TAB PO SCH (09:00)
[2018-05-15 09:09] LABS: BILIRUBIN URINE NEGATIVE (NEGATIVE); BLOOD URINE MODERATE (NEGATIVE); COLOR YELLOW; GLUCOSE URINE NEGATIVE (NEGATIVE); KETONE URINE 40 mg/dL (NEGATIVE); LEUKOCYTES URINE SMALL (NEGATIVE); NITRITE URINE NEGATIVE (NEGATIVE); PROTEIN URINE 50 mg/dL (NEGATIVE); SP GRAVITY URINE 1.022; TURBIDITY URINE CLEAR (CLEAR); UROBILINOGEN URINE 4 mg/dL (NORMAL)
[2018-05-15 09:12] LABS: UR EPITHELIAL CELLS <10 /HPF (<10); URINE BACTERIA NEGATIVE /HPF; URINE RBC TNTC /HPF (<10)
[2018-05-15 09:24] LABS: URINE CASTS NONE SEEN; URINE CRYSTALS NONE SEEN; URINE SMALL ROUND CELLS NONE SEEN; URINE YEAST NONE SEEN
[2018-05-15 09:27] LABS: AGAP 11; ALB/GLOB RATIO 0.8; ALBUMIN 2.8 g/dL (3.5-5.0); ALKALINE PHOSPHATASE 46 U/L (32-122); BUN 14 mg/dL (8-22); CHLORIDE 104 mmol/L (98-107); COSMO 286; CREATININE 0.9 mg/dL (0.7-1.2); ESTIMATED GFR > 60; GLUCOSE 116 mg/dL (70-104); GOT 9 U/L (10-34); GPT 9 U/L (10-44); PHOSPHORUS 1.6 mg/dL (2.7-4.5); POTASSIUM 3.1 mmol/L (3.5-5.1); SODIUM 143 mmol/L (136-145); TCO2 28 mmol/L (25-35); TOTAL BILIRUBIN 0.39 mg/dL (0.20-1.00); TOTAL PROTEIN 6.3 g/dL (6.3-8.3)
--- NOTE | 2018-05-15 09:29 | Diag Imaging Result Doc PS360 ---
EXAM: ABDOMEN FLAT/UPRIGHT 05/15/2018 HISTORY: pain TECHNIQUE: Flat and upright abdomen COMMENT: There is a fair amount of stool in the right colon. There is gaseous dilatation of the transverse colon and splenic flexure. There is some gas in the rectosigmoid. There are small bowel loops with gas which are not apparently distended in the right lower quadrant. Compared to the previous examination of 05/12/2018 the gaseous dilatation of the sigmoid colon is decreased. IMPRESSION: Slightly improved gaseous dilatation of the left colon compared to the previous study. The possibility of a distal colonic obstruction cannot be completely excluded. Electronically signed by Donovan Savage 05/15/2018 9:26 AM
[2018-05-15] MEDS: CASODEX PO SCH (09:34)
[2018-05-15] MEDS: ULTRAM PO PRN (09:34)
[2018-05-15] MEDS: NEURONTIN PO SCH ×2 (09:34→23:05)
[2018-05-15] MEDS: FLOMAX PO SCH ×2 (09:35→23:05)
[2018-05-15] MEDS: PEPCID PO SCH (09:35)
[2018-05-15] MEDS: APRESOLINE PO SCH ×3 (09:35→17:52)
[2018-05-15] MEDS: PROSCAR PO SCH (09:35)
[2018-05-15] MEDS: HYZAAR 50/12.5 MG PO SCH (09:35)
--- NOTE | 2018-05-15 09:43 | GENERAL SURGERY PROGRESS NOTE ---
DATE: 05/15/2018 Mr. Moreira is now 6 days after his incarcerated inguinal hernia repair. He is eating. His bowels have moved. His x-ray picture still shows air in his colon consistent with an ileus, but his bowels have moved some. His wound was fine. His white count is 6000. I think that he is progressing satisfactorily. I think it will still remain while for his colon to get back to normal but it is functional. It will be okay with me for him to go back to his rehab facility from his operative [id number]. cc: MD Jeff Barbosa MD
[2018-05-15] MEDS: CLINIMIX E 4.25%-5% SOLUTION 1,000 ML IV SCH ×2 (12:05→16:46)
[2018-05-15] MEDS: POTASSIUM CHLORIDE 10 MEQ in NS 1,000 ML IV SCH ×2 (12:31→16:45)
[2018-05-15] MEDS: PERIDEX MT SCH ×2 (12:52→23:11)
[2018-05-15] MEDS: WELLBUTRIN SR PO SCH (15:36)
[2018-05-15] MEDS ORDERED: KLOR-CON PO ONE (16:26)
[2018-05-15] MEDS: PROTONIX IV SCH (23:05)
[2018-05-16] MEDS: HEPARIN SUBQ SCH ×2 (04:46→14:57)
[2018-05-16] MEDS: ZOSYN 2.25 GM in NS 50 ML IV SCH ×4 (04:46→22:57)
[2018-05-16] MEDS: HUMALOG SUBQ SCH ×4 (06:25→22:57)
[2018-05-16] MEDS: WELLBUTRIN SR PO SCH ×2 (06:25→13:46)
[2018-05-16 08:08] LABS: BASO# 0.03 X1000 (0.0-0.2); BASO% 0.5 % (0.0-0.8); EOS# 0.13 X1000 (0.0-0.7); EOS% 2.2 % (0.0-10.0); HEMOGLOBIN 9.3 g/dL (14.0-18.0); IMM GRAN# 0.05 X1000 (0.0-0.04); IMM GRAN% 0.8 % (0.0-0.5); LYMPH# 1.54 X1000 (1.2-3.4); LYMPH% 25.9 % (20.5-51.1); MCH 28.9 PG (27-31); MCV 96.3 FL (81-99); MONO# 0.75 X1000 (0.11-0.59); MONO% 12.6 % (1.7-9.3); MPV 11.7 FL (7.4-10.4); NEUT# 3.44 X1000 (1.4-6.5); PLT 168 X1000 (130-400); RBC 3.22 XMIL (4.7-6.1); RDW 14.3 % (11.5-14.5); WBC 5.94 X1000 (4.8-10.8)
[2018-05-16 08:39] LABS: AGAP 10; ALB/GLOB RATIO 0.7; ALBUMIN 2.4 g/dL (3.5-5.0); ALKALINE PHOSPHATASE 42 U/L (32-122); BUN 11 mg/dL (8-22); CALCIUM 8.3 mg/dL (8.8-10.2); CHLORIDE 102 mmol/L (98-107); COSMO 281; CREATININE 0.8 mg/dL (0.7-1.2); ESTIMATED GFR > 60; GLUCOSE 139 mg/dL (70-104); GOT 9 U/L (10-34); GPT 8 U/L (10-44); POTASSIUM 3.3 mmol/L (3.5-5.1); SODIUM 140 mmol/L (136-145); TCO2 28 mmol/L (25-35); TOTAL BILIRUBIN 0.32 mg/dL (0.20-1.00); TOTAL PROTEIN 5.9 g/dL (6.3-8.3)
[2018-05-16] MEDS: POTASSIUM CHLORIDE 10 MEQ in NS 1,000 ML IV SCH ×2 (10:31→13:47)
[2018-05-16] MEDS: CLINIMIX E 4.25%-5% SOLUTION 1,000 ML IV SCH (10:32)
[2018-05-16] MEDS: PEPCID PO SCH (10:40)
[2018-05-16] MEDS: PERIDEX MT SCH (10:41)
[2018-05-16] MEDS: CASODEX PO SCH (10:41)
[2018-05-16] MEDS: PROSCAR PO SCH (10:41)
[2018-05-16] MEDS: HYZAAR 50/12.5 MG PO SCH (10:41)
[2018-05-16] MEDS: NEURONTIN PO SCH ×2 (10:42→22:57)
[2018-05-16] MEDS: APRESOLINE PO SCH ×3 (10:42→18:04)
[2018-05-16] MEDS: FLOMAX PO SCH ×2 (10:43→22:57)
[2018-05-16] MEDS: COREG PO SCH ×3 (10:43→22:57)
[2018-05-16] MEDS ORDERED: KLOR-CON PO ONE (11:49)
--- NOTE | 2018-05-16 12:16 | PROGRESS NOTE ---
DATE: 05/16/2018 SUBJECTIVE: Mr. Moreira is doing fair. Oral intake is still poor. Vague abdominal pain. The patient is a poor historian. No high-grade fever or chills. No nausea or vomiting. Reported to have 1 bowel movement. OBJECTIVE: Vital signs noted. Neck supple. No JVD. Lungs: Bibasilar crepitations. Heart: S1 and S2 heard. Abdomen: Soft, globular. The patient does have diffuse abdominal tenderness. No guarding or rigidity. Extremities: No cyanosis, clubbing. PLATE TAKE OUT WORKER: Alert, awake, uncooperative for detailed exam. LABORATORY DATA: Lab data done today revealed hemoglobin 9.3, hematocrit 31. Potassium 3.3. BUN 11, creatinine 0.8. CONSIDERATION: 1. Ileus seems to be improving slowly. 2. Hypokalemia. 3. Diabetes mellitus. 4. Hypertension. 5. Osteoarthritis. Will supplement potassium. PLAN: We will plan discharging patient home on Friday. Continue rest of the treatment. Close observation. I am going to repeat lab and x-ray tomorrow. cc: Jeff Sanchez MD
--- NOTE | 2018-05-16 15:54 | GENERAL SURGERY PROGRESS NOTE ---
DATE: 05/16/2018 SUBJECTIVE: The patient is not very talkative today and seems to be sort of still in an ill mood but cannot really identify any specific complaints. He says he is having some pain "all over." No nausea or vomiting. OBJECTIVE: He is afebrile. Vital signs are stable.General: He is awake, alert, no acute distress. Gastrointestinal: Soft, nontender, nondistended. He has had several bowel movements. LABORATORY: CBC and metabolic profile reviewed and unremarkable. ASSESSMENT AND PLAN: An 88-year-old male status post repair of incarcerated inguinal hernia. He appears to be stable and approaching discharge to rehab. He can follow up with Dr. Villegas within the next couple of weeks for postop check. cc: MD Jeff Larios MD
[2018-05-16] MEDS: PROTONIX IV SCH (22:57)
[2018-05-17] MEDS: PERIDEX MT SCH ×3 (00:06→22:32)
[2018-05-17] MEDS: ZOSYN 2.25 GM in NS 50 ML IV SCH (04:32)
[2018-05-17] MEDS: HEPARIN SUBQ SCH ×2 (04:34→16:47)
[2018-05-17] MEDS: HUMALOG SUBQ SCH ×3 (06:26→16:37)
[2018-05-17] MEDS: POTASSIUM CHLORIDE 10 MEQ in NS 1,000 ML IV SCH ×2 (06:46→10:23)
[2018-05-17] MEDS: WELLBUTRIN SR PO SCH ×2 (06:47→13:54)
[2018-05-17] MEDS: COREG PO SCH ×4 (09:58→22:29)
[2018-05-17] MEDS: NEURONTIN PO SCH ×2 (09:58→22:27)
[2018-05-17] MEDS: FLOMAX PO SCH ×2 (09:58→22:28)
[2018-05-17] MEDS: PROSCAR PO SCH (09:59)
[2018-05-17] MEDS: PEPCID PO SCH (09:59)
[2018-05-17] MEDS: HYZAAR 50/12.5 MG PO SCH ×2 (09:59→10:04)
[2018-05-17] MEDS: APRESOLINE PO SCH ×3 (10:09→16:48)
[2018-05-17] MEDS: CASODEX PO SCH (10:16)
[2018-05-17] MEDS: CLINIMIX E 4.25%-5% SOLUTION 1,000 ML IV SCH (10:16)
[2018-05-17] MEDS: FLAGYL 500 MG/NS 500 MG/100 ML IVPB IV SCH ×3 (10:26→22:30)
--- NOTE | 2018-05-17 11:14 | PROGRESS NOTE ---
DATE: 05/17/2018 SUBJECTIVELY: Mr. Moreira is doing fair. No high-grade fever or chills. The patient fever internal control consultant was 99.7. I did a stool workup. It was positive for C difficile toxin. We put patient on isolation. Her anti-DNase A was positive, but toxin itself was negative. I am going to start the patient on Flagyl. The patient is a vague and poor historian. Oral intake is fair to poor. The patient is getting Clinimix. No nausea or vomiting. OBJECTIVE: Vital Signs: Noted. Neck: Supple. No JVD. Lungs: Bilateral good air entry present. CVS: S1 and S2 heard. Abdomen: Soft, globular bowel sounds present. Vague diffuse tenderness. Extremities: No cyanosis, clubbing. No acute DVT. MICROBIOLOGY LAB ANALYST: Alert, awake, able to move all 4 limbs. Uncooperative for detailed neurologic examination. LABORATORY DATA: Done yesterday noted. I am going to stop Zosyn. Continue rest of the treatment. Close observation. Overall plan discussed with the nurse. The patient blood pressure was low. We are going to hold his blood pressure medicine. cc: Jeff Sanchez MD
--- NOTE | 2018-05-17 20:09 | GENERAL SURGERY PROGRESS NOTE ---
DATE: 05/17/2018 SUBJECTIVE: The patient is doing better today. He is eating a good breakfast. OBJECTIVE: Vital Signs: Temperature max is 100.2. Current temperature 99.7, pulse 79, respirations 15, blood pressure 159/98, O2 sat 97%. He has had a bowel movement. General: He is alert and oriented x3. No acute distress. Gastrointestinal: Soft, mildly distended. Nontender. Does have good bowel sounds. ASSESSMENT AND PLAN: An 88-year-old male status post left inguinal hernia repair with postoperative ileus that appears to be resolving. We are planning to transfer to rehab soon. cc: MD Jeff Larios MD
[2018-05-17] MEDS: SODIUM CHLORIDE 0.9% INJ SCH (22:28)
[2018-05-17] MEDS: PROTONIX IV SCH (22:28)
[2018-05-18] MEDS: HUMALOG SUBQ SCH ×4 (00:30→16:08)
[2018-05-18] MEDS: HEPARIN SUBQ SCH ×2 (03:55→16:07)
[2018-05-18] MEDS: FLAGYL 500 MG/NS 500 MG/100 ML IVPB IV SCH ×4 (04:17→16:16)
[2018-05-18 08:16] LABS: BASO# 0.01 X1000 (0.0-0.2); BASO% 0.2 % (0.0-0.8); EOS# 0.12 X1000 (0.0-0.7); EOS% 2.2 % (0.0-10.0); HEMATOCRIT 26.8 % (42.0-52.0); HEMOGLOBIN 8.1 g/dL (14.0-18.0); IMM GRAN# 0.04 X1000 (0.0-0.04); IMM GRAN% 0.7 % (0.0-0.5); LYMPH# 1.44 X1000 (1.2-3.4); LYMPH% 25.8 % (20.5-51.1); MCH 28.9 PG (27-31); MCHC 30.2 g/dL (33-37); MCV 95.7 FL (81-99); MONO# 0.71 X1000 (0.11-0.59); MONO% 12.7 % (1.7-9.3); MPV 11.5 FL (7.4-10.4); NEUT# 3.26 X1000 (1.4-6.5); NEUT% 58.4 % (42.2-75.2); PLT 189 X1000 (130-400); RDW 14.6 % (11.5-14.5); WBC 5.58 X1000 (4.8-10.8)
[2018-05-18 08:27] LABS: AGAP 9; ALB/GLOB RATIO 0.7; ALBUMIN 2.4 g/dL (3.5-5.0); ALKALINE PHOSPHATASE 43 U/L (32-122); BUN 11 mg/dL (8-22); CALCIUM 8.3 mg/dL (8.8-10.2); CHLORIDE 104 mmol/L (98-107); COSMO 292; CREATININE 0.8 mg/dL (0.7-1.2); ESTIMATED GFR > 60; GLUCOSE 129 mg/dL (70-104); GOT 8 U/L (10-34); GPT 5 U/L (10-44); POTASSIUM 2.8 mmol/L (3.5-5.1); SODIUM 146 mmol/L (136-145); TCO2 33 mmol/L (25-35); TOTAL BILIRUBIN 0.21 mg/dL (0.20-1.00); TOTAL PROTEIN 5.7 g/dL (6.3-8.3)
[2018-05-18] MEDS: FLOMAX PO SCH ×2 (09:08→21:44)
[2018-05-18] MEDS: PEPCID PO SCH (09:08)
[2018-05-18] MEDS: CASODEX PO SCH (09:08)
[2018-05-18] MEDS: NEURONTIN PO SCH ×2 (09:08→21:44)
[2018-05-18] MEDS: WELLBUTRIN SR PO SCH ×2 (09:08→14:37)
[2018-05-18] MEDS: COREG PO SCH ×4 (09:10→21:45)
[2018-05-18] MEDS: PROSCAR PO SCH (09:10)
[2018-05-18] MEDS: PERIDEX MT SCH ×3 (09:11→21:45)
[2018-05-18] MEDS ORDERED: KLOR-CON PO ONE (09:45)
[2018-05-18] MEDS ORDERED: NS + KCL 40 MEQ 1,000 ML IV SCH (10:00)
[2018-05-18 13:50] LABS: CREATININE 0.9 mg/dL (0.7-1.2)
[2018-05-18 14:03] LABS: RETIC% 1.42 % (0.8-2.1); RETIC-HE 29.6 PG (28.2-36.6)
[2018-05-18] MEDS: APRESOLINE PO SCH ×3 (14:27→20:04)
[2018-05-18] MEDS: CLINIMIX E 4.25%-5% SOLUTION 1,000 ML IV SCH (14:27)
[2018-05-18] MEDS: POTASSIUM CHLORIDE 10 MEQ in NS 1,000 ML IV SCH (14:28)
[2018-05-18] MEDS: HYZAAR 50/12.5 MG PO SCH (14:28)
[2018-05-18] MEDS: TYLENOL PO PRN (17:33)
[2018-05-18] MEDS ORDERED: NS 1,000 ML ONE ×2 (18:15→21:25)
[2018-05-19] MEDS: FLAGYL 500 MG/NS 500 MG/100 ML IVPB IV SCH ×5 (00:59→22:05)
[2018-05-19] MEDS: POTASSIUM CHLORIDE 10 MEQ in NS 1,000 ML IV SCH (02:13)
[2018-05-19] MEDS: CLINIMIX E 4.25%-5% SOLUTION 1,000 ML IV SCH ×2 (02:14→22:06)
[2018-05-19] MEDS: HUMALOG SUBQ SCH ×5 (02:15→22:49)
[2018-05-19] MEDS: HEPARIN SUBQ SCH ×2 (03:23→14:41)
[2018-05-19] MEDS: PROTONIX IV SCH ×2 (03:23→22:06)
[2018-05-19] MEDS: WELLBUTRIN SR PO SCH ×2 (06:36→13:15)
[2018-05-19] MEDS ORDERED: KLOR-CON PO ONE ×3 (07:09→17:28)
--- NOTE | 2018-05-19 07:40 | Diag Imaging Result Doc PS360 ---
EXAM: CHEST-PORTABLE HISTORY: fever TECHNIQUE: Portable chest COMPARISON: 01/22/2018 FINDINGS: Poor inspiratory effort. The heart is mildly prominent. There is mild vascular distention. No pleural effusions identified. No consolidation. IMPRESSION: Mildly prominent heart with central vascular distention. Electronically signed by Goyo Manzanares 05/19/2018 7:38 AM
--- NOTE | 2018-05-19 07:42 | Diag Imaging Result Doc PS360 ---
EXAM: ABDOMEN FLAT/UPRIGHT INDICATION: pain TECHNIQUE: 2 views COMPARISON: 05/15/2018 FINDINGS: There has been significant improvement of the gaseous distention of the colon that was seen on the previous study. No obstructive bowel pattern is identified. There is no evidence of large volume free abdominal gas. IMPRESSION: Improvement of gaseous distention of the colon. Electronically signed by Hudson Shelley 05/19/2018 7:40 AM
[2018-05-19 07:45] LABS: BASO# 0.01 X1000 (0.0-0.2); BASO% 0.2 % (0.0-0.8); EOS# 0.15 X1000 (0.0-0.7); EOS% 2.3 % (0.0-10.0); HEMATOCRIT 32.4 % (42.0-52.0); HEMOGLOBIN 10.1 g/dL (14.0-18.0); IMM GRAN# 0.05 X1000 (0.0-0.04); IMM GRAN% 0.8 % (0.0-0.5); LYMPH# 1.43 X1000 (1.2-3.4); LYMPH% 21.8 % (20.5-51.1); MCH 29.4 PG (27-31); MCHC 31.2 g/dL (33-37); MCV 94.2 FL (81-99); MONO# 0.78 X1000 (0.11-0.59); MONO% 11.9 % (1.7-9.3); MPV 11.3 FL (7.4-10.4); NEUT# 4.13 X1000 (1.4-6.5); PLT 210 X1000 (130-400); RBC 3.44 XMIL (4.7-6.1); RDW 14.3 % (11.5-14.5); WBC 6.55 X1000 (4.8-10.8)
[2018-05-19 08:05] LABS: AGAP 9; ALB/GLOB RATIO 0.8; ALBUMIN 2.7 g/dL (3.5-5.0); ALKALINE PHOSPHATASE 45 U/L (32-122); BUN 9 mg/dL (8-22); CALCIUM 8.2 mg/dL (8.8-10.2); CHLORIDE 105 mmol/L (98-107); COSMO 288; CREATININE 0.8 mg/dL (0.7-1.2); ESTIMATED GFR > 60; GLUCOSE 136 mg/dL (70-104); GOT 9 U/L (10-34); GPT 7 U/L (10-44); POTASSIUM 2.7 mmol/L (3.5-5.1); SODIUM 144 mmol/L (136-145); TCO2 30 mmol/L (25-35); TOTAL BILIRUBIN 0.22 mg/dL (0.20-1.00); TOTAL PROTEIN 6.1 g/dL (6.3-8.3)
[2018-05-19] MEDS: POTASSIUM CHLORIDE 20 MEQ/SWI 20 MEQ/100 ML IVPB IV SCH ×2 (09:38→12:10)
[2018-05-19] MEDS: COZAAR PO SCH (09:39)
[2018-05-19] MEDS: PERIDEX MT SCH ×2 (09:39→22:06)
[2018-05-19] MEDS: PEPCID PO SCH (09:40)
[2018-05-19] MEDS: FLOMAX PO SCH ×2 (09:40→22:06)
[2018-05-19] MEDS: CASODEX PO SCH (09:41)
[2018-05-19] MEDS: NEURONTIN PO SCH ×2 (09:41→22:06)
[2018-05-19] MEDS: COREG PO SCH ×5 (09:41→22:57)
[2018-05-19] MEDS: APRESOLINE PO SCH ×4 (09:42→16:29)
[2018-05-19] MEDS: PROSCAR PO SCH (09:43)
[2018-05-19] MEDS: ULTRAM PO PRN (09:59)
--- NOTE | 2018-05-19 10:24 | PROGRESS NOTE ---
DATE: 05/19/2018 SUBJECTIVE: Mr. Moreira is doing fair. The patient is complaining of pain, hurting pain all over. His hemoglobin was dropping. I transfused 2 units of packed RBC yesterday. Potassium was low. I order potassium supplement p.o. and IV. They just started IV recently. Order was not appropriate and I changed the IV order again. The patient is not recovering appropriately which delayed his discharged. No nausea or vomiting. Oral intake is variable. Denied any dysuria. The patient does have a Carmichael catheter. OBJECTIVE: Vital signs: Noted. Blood pressure is staying high. Neck: Supple. No JVD. Lungs: Bilateral good air entry present. CV: S1 and S2 heard. Abdomen: Soft, globular. Bowel sounds present. Extremities: No cyanosis, clubbing. RESIDENT CARE ASSOCIATE: Alert, awake. Able to move all 4 limbs. PLAN: Patient does have arthritis involving both the knees. The patient does have low-grade fever. I am going to check appropriate labs. Repeat chest x-ray. Continue the rest of the treatment. Close observation. Overall plan discussed with the patient. cc: Jeff Sanchez MD
--- NOTE | 2018-05-19 13:43 | GENERAL SURGERY PROGRESS NOTE ---
DATE: 05/19/2018 Mr. Moreira's wound looks fine. There is no evidence of infection of the wound. He now has a peripheral IV that his serving his needs for IV medication. From the surgical point of view, he can be discharged. cc: MD Jeff Barbosa MD
[2018-05-19] MEDS ORDERED: LASIX IV ONE (17:30)
[2018-05-19] MEDS: SODIUM CHLORIDE 0.9% INJ SCH (22:06)
[2018-05-20] MEDS: FLAGYL 500 MG/NS 500 MG/100 ML IVPB IV SCH ×3 (02:54→09:52)
[2018-05-20] MEDS: HEPARIN SUBQ SCH (02:54)
[2018-05-20] MEDS: HUMALOG SUBQ SCH ×2 (06:32→10:52)
[2018-05-20] MEDS: WELLBUTRIN SR PO SCH ×2 (06:35→13:03)
[2018-05-20 07:02] LABS: AGAP 10; BUN 10 mg/dL (8-22); CALCIUM 7.8 mg/dL (8.8-10.2); CHLORIDE 102 mmol/L (98-107); COSMO 285; CREATININE 0.8 mg/dL (0.7-1.2); ESTIMATED GFR > 60; GLUCOSE 141 mg/dL (70-104); SODIUM 142 mmol/L (136-145); TCO2 30 mmol/L (25-35)
[2018-05-20] MEDS ORDERED: KLOR-CON PO ONE (07:11)
[2018-05-20] MEDS: COZAAR PO SCH (09:51)
[2018-05-20] MEDS: PROSCAR PO SCH (09:51)
[2018-05-20] MEDS: COREG PO SCH ×2 (09:51→10:53)
[2018-05-20] MEDS: FLOMAX PO SCH (09:51)
[2018-05-20] MEDS: NEURONTIN PO SCH (09:51)
[2018-05-20] MEDS: APRESOLINE PO SCH ×2 (09:51→10:54)
[2018-05-20] MEDS: PEPCID PO SCH (09:51)
[2018-05-20] MEDS: CASODEX PO SCH (09:52)
[2018-05-20] MEDS: PERIDEX MT SCH (09:53)
--- NOTE | 2018-05-20 10:47 | DISCHARGE SUMMARY ---
ADMISSION DATE: 05/08/2018 DISCHARGE DATE: FINAL DISCHARGE DIAGNOSES: 1. Incarcerated left inguinal hernia, status post surgery. 2. Diabetes mellitus. 3. Colitis. 4. Hypertension. 5. Hypokalemia. 6. Gastritis and reflux disease. 7. History of prostate cancer. 8. Osteoarthritis. 9. Peripheral neuropathy. 10. Tsf-[id number]-ienqihvxz diabetes mellitus. HISTORY OF PRESENT ILLNESS: Mr. Moreira is an 88-year-old, patient, a resident of [facility], admitted with pain in the left groin and problems urinating. They tried to put in a Carmichael catheter at the [facility], but they could not. The patient was sent to the emergency room and evaluated by the ER physician. The patient had CT scan done, which did reveal left inguinal hernia containing portion of sigmoid colon, thickening of mucosa, paracolic inflammatory changes, possibility of colitis is suggested, sclerotic osseous metastatic disease, and pelvic adenopathy. The patient was sent to [facility], admitted, and evaluated by the surgeon the patient underwent surgery. Dr. Villegas fixed his hernia and Dr. Pineda put the Carmichael catheter in. Postoperative course complicated by the ileus and electrolyte abnormality. Then, the patient had diarrhea. Stool was positive for C difficile antigen. The patient was started on Flagyl. The patient had significant electrolyte abnormality, which delayed his discharge. We had a hard time getting his IV access. Overall, the patient is doing better. His potassium this morning was 3. BUN was 10, creatinine 0.8, sodium 142. CBC done yesterday with WBC count 6.55, hemoglobin 10.1, hematocrit 32.4, platelet count 210. The patient did receive 2 units of packed RBC as his hemoglobin was dropping. Overall, the patient is doing better. His abdominal x-ray done on 05/15/2018 did show improvement of gaseous distention of the colon. Overall, the patient received maximum benefit of hospitalization and I am planning to [facility] to the [facility] today. PHYSICAL EXAMINATION: Vital signs: Noted. Neck: Supple. No JVD. Lungs: Bibasilar crepitations. Heart: S1 and S2 heard. Abdomen: Soft, globular. Bowel sounds present. Central nervous system: Alert, awake, able to move all [address] Villegas and it is okay with him to discharge the patient. Overall discharge condition satisfactory. The patient will need follow up on stool workup, monitoring Accu-Chek and electrolytes, and fall precautions. cc: Jeff Sanchez MD
[2018-05-20 13:12] VITALS: BP 151/86
== END 2018-05-20 14:36 | DRG 351 ==
LOC: P.ED 17:52 → SUPCPDRO 05-08 02:36 → 4N 05-08 02:36 → SUATTDRO 05-08 02:36 → 4N 05-17 02:19
PROVIDERS: ADMIT Internal Medicine; ATTEND Internal Medicine
PROC: [UNRECOGNIZED PROCEDURE] (2018-05-09 11:20)
CPT/HCPCS: 36415; 36430; 51798; 71010; 71045; 74019; 74020; 74176; 76000; 80048; 80053; 81001; 82270; 82565; 82607; 82746; 82948; 83540; 83550; 83735; 84100; 84153; 85025; 85045; 86850; 86900; 86901; 86920; 87324; 87449; 88302; 94761; 94762; 94799; 99285; A9270; C9113; J0330; J1170; J1644; J1815; J1940; J2300; J2310; J2370; J2543; J3010; J3370; J3480; J7030; P9016; S0030; S0138; S0164; XXXXX